=== PATIENT | male | born 1995 | race Caucasian/White ===

== ENCOUNTER → 2020-03-09 | Outpatient (CLI) | payer OTHER | LOC: LAB 11:01 | DX: R50.9 Fever, unspecified (principal); R05 Cough; R51 Headache; R06.02 Shortness of breath; R19.7 Diarrhea, unspecified; Z87.09 Personal history of other diseases of the respiratory system ==

== ENCOUNTER → 2021-06-08 | Outpatient (CLI) | payer OTHER | LOC: RAD 09:18 | DX: M25.512 Pain in left shoulder (principal) ==

== ENCOUNTER 2021-12-06 09:23 | Emergency (ER) | payer OTHER ==
[~2021-12-06] VITALS: Wt 126.8 kg
[2021-12-06 10:13] LABS: EOS # 0.01 K/mm3 (0.04-0.40); EOS % 0.1 % (0.0-4.0); HEMATOCRIT 47.8 % (42.0-52.0); HEMOGLOBIN 16.9 g/dL (13.5-18.0); LYMPH# 0.62 K/mm3 (1.50-4.00); MEAN CELL VOLUME 89 fl (78-100); MEAN CORPUSCULAR HEMOGLOBIN 32 pg (27-31); MEAN CORPUSCULAR HGB CONC 35 g/dL (33-37); MEAN PLATELET VOLUME 8.8 fl (7.4-10.4); PLATELET COUNT 248 K/mm3 (130-400); RED BLOOD COUNT 5.37 M/mm3 (4.20-5.60); RED CELL DISTRIBUTION WIDTH 11.5 % (11.5-14.5); WHITE BLOOD COUNT 9.8 K/mm3 (4.8-10.8)
[2021-12-06 10:23] LABS: ALBUMIN 4.2 g/dL (3.5-5.0)
[2021-12-06 10:25] LABS: TOTAL PROTEIN 6.8 g/dL (6.4-8.3)
[2021-12-06 10:27] LABS: TOTAL BILIRUBIN 1.1 mg/dL (0.2-1.2)
[2021-12-06 11:26] LABS: URINE APPEARANCE CLEAR; URINE COLOR YELLOW
[2021-12-06 11:27] LABS: URINE BILIRUBIN NEGATIVE (NEGATIVE); URINE BLOOD NEGATIVE (NEGATIVE); URINE GLUCOSE NEGATIVE (NEGATIVE); URINE KETONE NEGATIVE (NEGATIVE); URINE LEUKOCYTE ESTERASE NEGATIVE (NEGATIVE); URINE NITRATE NEGATIVE (NEGATIVE); URINE PROTEIN(semi-quant) 1+ (NEGATIVE); URINE UROBILINOGEN NORMAL (NORMAL); URINE WBC 0-1 /hpf (0-3)
[2021-12-06] MEDS ORDERED: ZOFRAN4 M2 PO (12:27)
[2021-12-06 13:00] VITALS: BP 145/84
== END 2021-12-06 12:58 | disposition home or self-care (01) ==
LOC: ED 09:23
PROVIDERS: Physician Assistant
DX: R19.7 Diarrhea, unspecified (principal); R10.11 Right upper quadrant pain; R11.2 Nausea with vomiting, unspecified; Z20.822 Contact with and (suspected) exposure to COVID-19
CPT/HCPCS: J7030

== ENCOUNTER → 2024-03-19 | Outpatient (CLI) | payer OTHER ==
[~2024-03-19] MED LIST: ZOFRAN4 M2 PO
[2024-03-19 11:32] LABS: BASO # 0.03 K/mm3 (0.02-0.10); EOS # 0.09 K/mm3 (0.04-0.40); EOS % 1.4 % (0.0-4.0); HEMATOCRIT 46.8 % (42.0-52.0); HEMOGLOBIN 16.5 g/dL (13.5-18.0); LYMPH# 1.79 K/mm3 (1.50-4.00); MEAN CELL VOLUME 89 fl (78-100); MEAN CORPUSCULAR HEMOGLOBIN 31 pg (27-31); MEAN CORPUSCULAR HGB CONC 35 g/dL (33-37); MEAN PLATELET VOLUME 8.8 fl (7.4-10.4); MONO # 0.68 K/mm3 (0.20-0.80); NEU # 4.04 K/mm3 (1.40-6.50); PLATELET COUNT 248 K/mm3 (130-400); RED BLOOD COUNT 5.29 M/mm3 (4.20-5.60); RED CELL DISTRIBUTION WIDTH 11.6 % (11.5-14.5); WHITE BLOOD COUNT 6.6 K/mm3 (4.8-10.8)
[2024-03-19 11:39] LABS: ALBUMIN 4.4 g/dL (3.5-5.0)
[2024-03-19 11:40] LABS: CALCIUM 9.4 mg/dL (8.3-10.5)
[2024-03-19 11:41] LABS: TOTAL PROTEIN 7.1 g/dL (6.4-8.3)
[2024-03-19 11:43] LABS: TOTAL BILIRUBIN 0.5 mg/dL (0.2-1.2)
== END ==
LOC: LAB 11:22
PROVIDERS: Nurse Practitioner Family
DX: R03.0 Elevated blood-pressure reading, without diagnosis of hypertension (principal)

== ENCOUNTER → 2024-03-26 | Outpatient (CLI) | payer OTHER ==
[2024-05-25 15:03] LABS: ALDOSTERONE, SERUM 3.8; CREATININE OTHER SOURCE AMS; RENIN,PLASMA 1.376
== END ==
LOC: LAB 07:06
PROVIDERS: Family Medicine
DX: I10 Essential (primary) hypertension (principal)

== ENCOUNTER → 2024-04-22 | Outpatient (CLI) | payer OTHER ==
[2024-06-11 11:41] LABS: CALCIUM 9.9 mg/dL (8.3-10.5)
== END ==
LOC: LAB 16:10
PROVIDERS: Family Medicine
DX: I10 Essential (primary) hypertension (principal)

== ENCOUNTER → 2024-07-22 | Outpatient (CLI) | payer OTHER ==
[2024-07-22 09:51] LABS: BASO # 0.02 K/mm3 (0.02-0.10); EOS # 0.05 K/mm3 (0.04-0.40); EOS % 0.8 % (0.0-4.0); HEMATOCRIT 47.2 % (42.0-52.0); HEMOGLOBIN 16.5 g/dL (13.5-18.0); LYMPH# 1.58 K/mm3 (1.50-4.00); MEAN CELL VOLUME 89 fl (78-100); MEAN CORPUSCULAR HEMOGLOBIN 31 pg (27-31); MEAN CORPUSCULAR HGB CONC 35 g/dL (33-37); MEAN PLATELET VOLUME 8.9 fl (7.4-10.4); MONO # 0.66 K/mm3 (0.20-0.80); NEU # 3.89 K/mm3 (1.40-6.50); PLATELET COUNT 261 K/mm3 (130-400); RED BLOOD COUNT 5.32 M/mm3 (4.20-5.60); RED CELL DISTRIBUTION WIDTH 11.7 % (11.5-14.5); WHITE BLOOD COUNT 6.2 K/mm3 (4.8-10.8)
== END ==
LOC: LAB 09:41
PROVIDERS: Nurse Practitioner Family
DX: R42 Dizziness and giddiness (principal)